=== PATIENT | female | born 1985 | race Caucasian/White ===

== ENCOUNTER → 2017-02-24 | Outpatient (CLI) | payer BC ==
--- NOTE | 2017-02-24 17:01 | XR ---
Lumbar spine HISTORY: Low back pain, trauma 3 views of the lumbar spine Bone mineralization, disc spaces and alignment are maintained. No evident paraspinal mass. Mild spina l curvature may be positional. IMPRESSION: No acute fracture or subluxation.
--- NOTE | 2017-02-24 17:02 | XR ---
Cervical spine HISTORY: Neck pain 3 views of the cervical spine No comparisons Cervical vertebral bodies show preserved height, alignment, and bone mineralization. Disc spaces and prevertebral soft tissues are normal. IMPRESSION: No fracture or subluxation.
== END | disposition home or self-care (01) ==
LOC: RADXRMAIN 12:01
PROVIDERS: ATTEND Physician Assistant
DX: M54.2 Cervicalgia (principal); M54.5 Low back pain
CPT/HCPCS: 72040; 72100

== ENCOUNTER → 2017-09-19 | Outpatient (CLI) | payer BC ==
--- NOTE | 2017-09-28 12:28 | HM ---
HOLTER MONITOR REPORT 24 HOUR HOLTER MONITOR: Sinus rhythm with heart rate from 58 to 161 beats per minute. Average 82 beats per minute. No bradycardia. No pauses. No arrhythmias noted. [id number] / VANN: [id number] /
== END | disposition home or self-care (01) ==
LOC: RADECHMAIN 12:05
PROVIDERS: ATTEND Family Medicine
DX: R00.2 Palpitations (principal)
CPT/HCPCS: 93225; 93226